=== PATIENT | female | born 1940 | race Caucasian/White ===

== ENCOUNTER → 2017-06-26 | Outpatient (CLI) | payer MEDICARE ==
--- NOTE | 2017-06-26 15:54 | US ---
EXAMINATION TYPE: US carotid duplex BILAT DATE OF EXAM: 06/26/2017 COMPARISON: NONE CLINICAL HISTORY: I65.23 Occlusion/Stenosis,I34.0 Nonrheumatic mitral. EXAM MEASUREMENTS: RIGHT: Peak Systolic Velocity (PSV) cm/sec ----- Right CCA: 66.1 ----- Right ICA: 87.1 ----- Right ECA: 61.2 ICA/CCA ratio: 1.3 RIGHT: End Diastole cm/sec ----- Right CCA: 27.3 ----- Right ICA: 38.6 ----- Right ECA: 11.6 LEFT: Peak Systolic Velocity (PSV) cm/sec ----- Left CCA: 62.5 ----- Left ICA: 87.1 ----- Left ECA: 40.0 ICA/CCA ratio: 1.4 LEFT: End Diastole cm/sec ----- Left CCA: 30.7 ----- Left ICA: 33.8 ----- Left ECA: 8.6 VERTEBRALS (direction of flow): Right Vertebral: Antegrade Left Vertebral: Antegrade Rhythm: Normal Grayscale images show mild eccentric plaque at right carotid bulb. There is more moderate eccentric p laque at left carotid bulb. Velocity measurements and ratios remain within normal limits in visualize d portion of both internal carotid arteries. IMPRESSION: There is mild to moderate left greater than right atherosclerotic change without hemodyn amically significant stenosis seen in either internal carotid artery. Criteria for Assigning % of Stenosis / Diameter reduction (Estimation based on the indirect measurements of the internal carotid artery velocities (ICA PSV). 1. Normal (no stenosis)=ICA PSV < 125 cm/s: ratio < 2.0: ICA EDV<40 cm/s. 2. Less than 50% stenosis=ICA PSV < 125 cm/s: ratio < 2.0: ICA EDV<40 cm/s. 3. 50 to 69% stenosis=ICA PSV of 125 to 230 cm/s: ration 2.0 ? 4.0: ICA EDV 40-100 cm/s. 4. Greater than 70% stenosis to near occlusion= ICA PSV > 230 cm/s: ratio > 4.0: ICA EDV > 100 cm/s. 5. Near occlusion= ICA PSV velocities may be low or undetectable: variable ratio and ICA EDV. 6. Total occlusion=unable to detect flow.
--- NOTE | 2017-06-27 08:59 | ECHOF ---
Referral Reason:I65.23 Occlusion/Stenosis,I34.0 Nonrheumatic luann MEASUREMENTS -------- HEIGHT: 132.1 cm WEIGHT: 63.0 kg BP: IVSd: 0.9 cm (0.6 - 1.1) LVIDd: 3.8 cm (3.9 - 5.3) LVPWd: 1.1 cm (0.6 - 1.1) IVSs: 1.3 cm LVIDs: 2.2 cm LVPWs: 1.0 cm Ao Diam: 2.8 cm (2.0 - 3.7) AV Cusp: 1.8 cm (1.5 - 2.6) LA Diam: 3.4 cm (2.7 - 3.8) MV EXCURSION: 14.317 mm (> 18.000) MV EF SLOPE: 76 mm/s (70 - 150) EPSS: 0.3 cm MV E Pool: 0.55 m/s MV DecT: 244 ms MV A Pool: 0.94 m/s MV E/A Ratio: 0.59 RAP: 5.00 mmHg RVSP: 31.41 mmHg FINDINGS -------- Sinus rhythm. This was a technically good study. LV size, wall thickness and systolic function are normal, with an EF greater than 55%. The right ventricle is normal in size. The left atrial size is normal. The right atrial size is normal. The aortic valve is trileaflet, and appears structurally normal. No aortic stenosis or regurgitation. Mild mitral annular calcification present. Mild mitral regurgitation is present. Mild tricuspid regurgitation present. There is no evidence of pulmonary hypertension. The right v entricular systolic pressure, as measured by Doppler, is 31.41mmHg. There is no pulmonic regurgitation present. The aortic root size is normal. There is no pericardial effusion. CONCLUSIONS -------- 1. Sinus rhythm. 2. This was a technically good study. 3. LV size, wall thickness and systolic function are normal, with an EF greater than 55%. 4. The left atrial size is normal. 5. The aortic valve is trileaflet, and appears structurally normal. No aortic stenosis or regurgitati on. 6. Mild mitral regurgitation is present. 7. Mild tricuspid regurgitation present. 8. There is no evidence of pulmonary hypertension. 9. There is no pulmonic regurgitation present. 10. The aortic root size is normal. 11. There is no pericardial effusion. BAKE ROOM WORKER: Lennie Morejon RDCS
== END | disposition home or self-care (01) ==
LOC: RADECHMAIN 14:59
PROVIDERS: ATTEND Internal Medicine
DX: I08.1 Rheumatic disorders of both mitral and tricuspid valves (principal); I65.23 Occlusion and stenosis of bilateral carotid arteries
CPT/HCPCS: 93306; 93880

== ENCOUNTER → 2017-07-16 | Outpatient (CLI) | payer MEDICARE ==
--- NOTE | 2017-07-17 09:08 | MM ---
Reason for exam: clinical finding. Last mammogram was performed 13 years and 9 months ago. History: Patient is postmenopausal. Family history of breast cancer. Indicated problem(s): palpable abnormality and lump or thickening in the left breast. Physical Findings: Nurse did not find any significant physical abnormalities on exam. MG 3D Diag Mammo W/Cad SAULO Bilateral CC and MLO view(s) were taken. Prior study comparison: October 09, 2003, bilateral screening mammogram. June 24, 2002, bilateral special view mammogram. There are scattered fibroglandular densities. Intramammary lymph node upper outer quadrant bilaterally. No significant new findings when compared with previous films. These results were verbally communicated with the patient and result sheet given to the patient on 07/16/17. ASSESSMENT: Benign, BI-RAD 2 RECOMMENDATION: Routine screening mammogram of both breasts in 1 year. Manage patient on a clinical basis.
== END | disposition home or self-care (01) ==
LOC: RADMAMWWP 09:42
PROVIDERS: ATTEND Internal Medicine
DX: R92.2 Inconclusive mammogram (principal)
CPT/HCPCS: 77066; G0279

== ENCOUNTER → 2017-07-16 | Outpatient (CLI) | payer MEDICARE ==
--- NOTE | 2017-07-16 14:38 | BD ---
EXAMINATION TYPE: MG DEXA axial skeleton. DATE OF EXAM: 07/16/2017 COMPARISON: NONE CLINICAL HISTORY: 77 YR OLD FEMALE....ICD-10 CODE: M89.9 DISORDER OF BONE Height: 58 Weight: 137 FRAX RISK QUESTIONS: Alcohol (3 or more units per day): NO Family History (Parent hip fracture): NO Glucocorticoids (More than 3mos): NO (Ex: prednisone, prednisolone, methylprednisolone, dexamethasone, and hydrocortisone). History of Fracture in Adulthood: NO Secondary Osteoporosis: NO 1. Type 1 Diabetes: NO 2. Hyperthyroidism: NO 3. Menopause before 45: NO 4. Malnutrition: NO 5. Chronic liver disease: NO Rheumatoid Arthritis: NO Current Tobacco Use: VAP, YES RISK FACTORS HISTORY OF: Family History of Osteoporosis: YES, DAUGHTER Active: YES Diet low in dairy products/other sources of calcium: YES, LOW Postmenopausal woman: AT AGE 55 YRS OLD Lost more than 2 inches in height since high school: YES Hyperparathyroidism: NO Adrenal Insufficiency: NO MEDICATIONS: Thyroid Medications: YES, SYNTHROID How Lon YRS Additional Medications: BP MEDS, LORAZEPAM, ASPIRIN, REFLUX MEDS, STATINS FOR CHOLESTEROL, Additional History: HYPERTENSION, EXAM MEASUREMENTS: Bone mineral densitometry was performed using the [employer] System. Bone mineral density as measured about the Lumbar spine is: ----- L1-L4(G/cm2): 1.401 T Score Values are as follows: ----- L1: 1.0 ----- L2: 1.1 ----- L3: 3.2 ----- L4: 1.9 ----- L1-L4: 1.8 Bone mineral density FIRST BONE DENSITY TEST HERE AT [facility] Bone mineral density about the R hip (g/cm2): 0.989 Bone mineral density about the L hip (g/cm2): 0.950 T Score values are as follows: -----R Neck: -1.6 -----L Neck: -1.7 -----R Total: -0.1 -----L Total: -0.5 FRAX%'S: THERE IS A 13.0% CHANCE OF A MAJOR OSTEOPOROTIC FX AND A 4.5% FOR HIP FX.....PROBABILITY O F FX IN 10 YRS TIME IMPRESSION: Osteopenia (T Score between -2.5 and -1 as noted by T score values There is slightly increased risk of fracture and the patient may be considered for treatment. Re-Screen 2-5 years. NOTE: T-SCORE=SD OF THE YOUNG ADULT MEAN.
== END | disposition home or self-care (01) ==
LOC: RADBDWWP 10:06
PROVIDERS: ATTEND Internal Medicine
DX: M85.80 Other specified disorders of bone density and structure, unspecified site (principal)
CPT/HCPCS: 77080

== ENCOUNTER → 2018-10-04 | Outpatient (CLI) | payer MEDICARE ==
--- NOTE | 2018-10-06 10:28 | MM ---
Reason for exam: screening (asymptomatic). Last mammogram was performed 1 year and 3 months ago. History: Patient is postmenopausal. Physical Findings: A clinical breast exam by your physician is recommended on an annual basis and results should be correlated with mammographic findings. MG 3D Screening Mammo W/Cad Bilateral CC and MLO view(s) were taken. Prior study comparison: July 16, 2017, bilateral MG 3d diag mammo w/cad SAULO. October 09, 2003, bilateral screening mammogram. There are scattered fibroglandular densities. No suspicious abnormality. No significant changes when compared with prior studies. ASSESSMENT: Negative, BI-RAD 1 RECOMMENDATION: Routine screening mammogram of both breasts in 1 year.
== END | disposition home or self-care (01) ==
LOC: RADMAMWWP 09:40
PROVIDERS: ATTEND Internal Medicine
DX: Z12.31 Encounter for screening mammogram for malignant neoplasm of breast (principal)
CPT/HCPCS: 77063; 77067

== ENCOUNTER → 2019-08-18 | Outpatient (CLI) | payer MEDICARE ==
--- NOTE | 2019-08-18 15:51 | US ---
EXAMINATION TYPE: US carotid duplex BILAT DATE OF EXAM: 08/18/2019 COMPARISON: NONE CLINICAL HISTORY: 79-year-old female I65.23 CAROTID OCCLUSION AND STENOSIS. Stenosis TECHNIQUE: Carotid duplex ultrasound examination. In the right Doppler criteria was utilized. FINDINGS: EXAM MEASUREMENTS: RIGHT: Peak Systolic Velocity (PSV) cm/sec ----- Right CCA: 69.0 ----- Right ICA: 81.5 ----- Right ECA: 67.9 ICA/CCA ratio: 1.2 RIGHT: End Diastole cm/sec ----- Right CCA: 31.1 ----- Right ICA: 29.2 ----- Right ECA: 14.3 LEFT: Peak Systolic Velocity (PSV) cm/sec ----- Left CCA: 78.8 ----- Left ICA: 84.3 ----- Left ECA: 83.6 ICA/CCA ratio: 1.1 LEFT: End Diastole cm/sec ----- Left CCA: 29.9 ----- Left ICA: 31.9 ----- Left ECA: 20.4 VERTEBRALS (direction of flow): Right Vertebral: Antegrade Left Vertebral: Antegrade Rhythm: Normal Psychology Technician notes: The vessels dive deep. No significant stenosis seen IMPRESSION: No hemodynamically significant ICA stenosis on either side. Criteria for Assigning % of Stenosis / Diameter reduction (Estimation based on the indirect measurements of the internal carotid artery velocities (ICA PSV). 1. Normal (no stenosis)=ICA PSV < 125 cm/s: ratio < 2.0: ICA EDV<40 cm/s. 2. Less than 50% stenosis=ICA PSV < 125 cm/s: ratio < 2.0: ICA EDV<40 cm/s. 3. 50 to 69% stenosis=ICA PSV of 125 to 230 cm/s: ration 2.0 ? 4.0: ICA EDV 40-100 cm/s. 4. Greater than 70% stenosis to near occlusion= ICA PSV > 230 cm/s: ratio > 4.0: ICA EDV > 100 cm/s. 5. Near occlusion= ICA PSV velocities may be low or undetectable: variable ratio and ICA EDV. 6. Total occlusion=unable to detect flow.
--- NOTE | 2019-08-18 20:14 | ECHOF ---
Referral Reason:I34.0 Nonrheumatic mitral (valve) insufficiency MEASUREMENTS -------- HEIGHT: 147.3 cm WEIGHT: 61.2 kg BP: IVSd: 1.2 cm (0.6 - 1.1) LVIDd: 3.3 cm (3.9 - 5.3) LVPWd: 1.0 cm (0.6 - 1.1) IVSs: 1.2 cm LVIDs: 2.3 cm LVPWs: 1.5 cm RVIDd: 3.0 cm (< 3.3) LAESV Index (A-L): 17.99 ml/m Ao Diam: 2.0 cm (2.0 - 3.7) AV Cusp: 1.6 cm (1.5 - 2.6) EPSS: 0.4 cm MV E Pool: 0.92 m/s MV DecT: 236 ms MV A Pool: 1.18 m/s MV E/A Ratio: 0.78 RAP: 5.00 mmHg RVSP: 35.15 mmHg MV EF SLOPE: 29.09 mm/s (70 - 150) MV EXCURSION: 11.54 mm (> 18.000) FINDINGS -------- Sinus rhythm. This was a technically adequate study. The left ventricular size is normal. There is mild concentric left ventricular hypertrophy. Overa ll left ventricular systolic function is normal with, an EF between 55 - 60 %. The diastolic fillin g pattern is normal for the age of the patient 13.49. The right ventricle is normal in size. Normal LA size by volume 22+/-6 ml/m2. The right atrial size is normal. Interatrial and interventricular septum intact. There is no evidence of aortic regurgitation. There is no evidence of aortic stenosis. Mild mitral regurgitation is present. Mild tricuspid regurgitation present. There is mild pulmonary hypertension. The right ventricular systolic pressure, as measured by Doppler, is 35.15mmHg. There is no pulmonic regurgitation present. The aortic root size is normal. Normal inferior vena cava with normal inspiratory collapse consistent with estimated right atrial pre ssure of 5 mmHg. There is no pericardial effusion. CONCLUSIONS -------- 1. Sinus rhythm. 2. This was a technically adequate study. 3. The left ventricular size is normal. 4. There is mild concentric left ventricular hypertrophy. 5. Overall left ventricular systolic function is normal with, an EF between 55 - 60 %. 6. The diastolic filling pattern is normal for the age of the patient 13.49 7. The right ventricle is normal in size. 8. Normal LA size by volume 22+/-6 ml/m2. 9. The right atrial size is normal. 10. Interatrial and interventricular septum intact. 11. There is no evidence of aortic regurgitation. 12. There is no evidence of aortic stenosis. 13. Mild mitral regurgitation is present. 14. Mild tricuspid regurgitation present. 15. There is mild pulmonary hypertension. 16. The right ventricular systolic pressure, as measured by Doppler, is 35.15mmHg. 17. There is no pulmonic regurgitation present. 18. The aortic root size is normal. 19. Normal inferior vena cava with normal inspiratory collapse consistent with estimated right atrial pressure of 5 mmHg. 20. There is no pericardial effusion. GAS ROLLER OPERATOR: Amisha Wallace RDCS
== END | disposition home or self-care (01) ==
LOC: RADECHMAIN 12:16
PROVIDERS: ATTEND Internal Medicine
DX: I65.23 Occlusion and stenosis of bilateral carotid arteries (principal); I08.1 Rheumatic disorders of both mitral and tricuspid valves; I27.20 Pulmonary hypertension, unspecified
CPT/HCPCS: 93306; 93880

== ENCOUNTER → 2020-12-24 | Outpatient (CLI) | payer MEDICARE ==
--- NOTE | 2020-12-25 10:45 | ECHOF ---
Referral Reason:R01.1 Cardiac Murmur MEASUREMENTS -------- HEIGHT: 149.9 cm WEIGHT: 58.1 kg BP: 145/82 RVIDd: 2.8 cm (< 3.3) IVSd: 1.1 cm (0.6 - 1.1) LVIDd: 3.7 cm (3.9 - 5.3) LVPWd: 1.0 cm (0.6 - 1.1) IVSs: 1.5 cm LVIDs: 2.4 cm LVPWs: 1.2 cm LA Diam: 2.7 cm (2.7 - 3.8) LAESV Index (A-L): 21.42 ml/m Ao Diam: 2.9 cm (2.0 - 3.7) AV Cusp: 1.8 cm (1.5 - 2.6) MV EXCURSION: 13.970 mm (> 18.000) MV EF SLOPE: 49 mm/s (70 - 150) EPSS: 0.4 cm MV E Pool: 1.06 m/s MV DecT: 259 ms MV A Pool: 1.26 m/s MV E/A Ratio: 0.84 RAP: 5.00 mmHg RVSP: 36.87 mmHg FINDINGS -------- Sinus rhythm. This was a technically adequate study. The left ventricular size is normal. There is borderline concentric left ventricular hypertrophy. Overall left ventricular systolic function is normal with, an EF between 60 - 65 %. The right ventricle is normal in size. Normal LA size by volume 22+/-6 ml/m2. The right atrium is normal in size. Interatrial and interventricular septum intact. There is mild aortic valve sclerosis. The mitral valve leaflets are mildly thickened. Mild mitral annular calcification present. There is trace to mild mitral regurgitation. Mild tricuspid regurgitation present. There is mild pulmonary hypertension. The right ventricular systolic pressure, as measured by Doppler, is 36.87mmHg. Trace/mild (physiologic) pulmonic regurgitation. The aortic root size is normal. Normal inferior vena cava with normal inspiratory collapse consistent with estimated right atrial pre ssure of 5 mmHg. There is no pericardial effusion. CONCLUSIONS -------- 1. The left ventricular size is normal. 2. There is borderline concentric left ventricular hypertrophy. 3. Overall left ventricular systolic function is normal with, an EF between 60 - 65 %. 4. There is mild aortic valve sclerosis. 5. The mitral valve leaflets are mildly thickened. 6. Mild mitral annular calcification present. 7. There is trace to mild mitral regurgitation. 8. Mild tricuspid regurgitation present. 9. There is mild pulmonary hypertension. 10. The right ventricular systolic pressure, as measured by Doppler, is 36.87mmHg. 11. Trace/mild (physiologic) pulmonic regurgitation. 12. There is no pericardial effusion. RAIL TRACK LAYER: Monica Villegas RDCS
== END | disposition home or self-care (01) ==
LOC: RADECHMAIN 13:34
PROVIDERS: ATTEND Family Medicine
DX: I08.8 Other rheumatic multiple valve diseases (principal); I27.20 Pulmonary hypertension, unspecified
CPT/HCPCS: 93005; 93306

== ENCOUNTER → 2020-12-26 | Outpatient (CLI) | payer MEDICARE ==
--- NOTE | 2020-12-27 10:58 | BD ---
EXAMINATION TYPE: Axial Bone Density DATE OF EXAM: 12/26/2020 COMPARISON: NONE CLINICAL HISTORY: Postmenopausal Height: 58 Weight: 131.6 FRAX RISK QUESTIONS: Alcohol (3 or more units per day): no Family History (Parent hip fracture): no Glucocorticoids (More than 3mos): no (Ex: prednisone, prednisolone, methylprednisolone, dexamethasone, and hydrocortisone). History of Fracture in Adulthood: no Secondary Osteoporosis: 1. Type 1 Diabetes: no 2. Hyperthyroidism: no 3. Menopause before 45: no 4. Malnutrition: no 5. Chronic liver disease: no Rheumatoid Arthritis: no Current Tobacco Use: yes RISK FACTORS HISTORY OF: Surgery to Spine/Hip(right/left)/Wrist (right/left): no Family History of Osteoporosis: no Active: yes Diet low in dairy products/other sources of calcium: no Postmenopausal woman: age 49 Lost more than 2 inches in height since high school: no MEDICATIONS: diltiazem, crestor Thyroid Medications: thyroid/levothyroxine How Lon years Additional History: EXAM MEASUREMENTS: Bone mineral densitometry was performed using the [employer] System. Bone mineral density as measured about the Lumbar spine is: ----- L1-L4(G/cm2): 1.453 T Score Values are as follows: ----- L2: 1.9 ----- L3: 3.4 ----- L4: 2.9 ----- L1-L4: 2.3 Bone mineral density has: increased 6.1 % since study of: 07.16.2017 Bone mineral density about the R hip (g/cm2): 0.793 Bone mineral density about the L hip (g/cm2): 0.738 T Score values are as follows: -----R Neck: -1.8 -----L Neck: -2.2 -----R Total: -0.8 -----L Total: -1.0 Bone mineral density has: decreased -7.6 % since study of: 07.16.2017 IMPRESSION: Osteopenia (T Score between -2.5 and -1). There is slightly increased risk of fracture and the patient may be considered for treatment. Re-Screen 2-5 years. NOTE: T-SCORE=SD OF THE YOUNG ADULT MEAN.
== END | disposition home or self-care (01) ==
LOC: RADBDWWP 16:12
PROVIDERS: ATTEND Family Medicine
DX: Z13.820 Encounter for screening for osteoporosis (principal); M85.89 Other specified disorders of bone density and structure, multiple sites; Z78.0 Asymptomatic menopausal state
CPT/HCPCS: 77080

== ENCOUNTER → 2022-01-13 | Outpatient (CLI) | payer MEDICARE ==
--- NOTE | 2022-01-13 13:44 | XR ---
EXAMINATION TYPE: XR KUB DATE OF EXAM: 01/13/2022 COMPARISON: NONE HISTORY: Pain TECHNIQUE: Single supine KUB image of the abdomen is obtained FINDINGS: Small bowel demonstrates no evidence for dilatation or air fluid levels. Gas and fecal material is seen in non-distended colon. No convincing evidence for pneumoperitoneum. No unusual calcifications. The lung bases are clear. The osseous structures are intact. Mild fecal stasis noted. IMPRESSION: 1. Overall nonobstructive bowel gas pattern.
== END | disposition home or self-care (01) ==
LOC: RADXRMAIN 13:24
PROVIDERS: ATTEND Nurse Practitioner Family
DX: R31.9 Hematuria, unspecified (principal); R10.9 Unspecified abdominal pain
CPT/HCPCS: 74018

== ENCOUNTER → 2022-05-05 | Outpatient (CLI) | payer MEDICARE ==
[2022-05-05 23:47] LABS: Basophils # (A) 0.04 X 10*3/uL (0.00-0.10); Basophils % (A) 0.6 %; Eosinophils # (A) 0.17 X 10*3/uL (0.04-0.35); Eosinophils % (A) 2.5 %; HCT 44.2 % (37.2-46.3); HGB 14.2 g/dL (12.0-15.0); Immature Grans, Automated 0.3 %; Lymphocytes # (A) 1.67 X 10*3/uL (0.90-5.00); Lymphocytes % (A) 24.5 %; MCH 29.3 pg (27.0-32.0); MCHC 32.1 g/dL (32.0-37.0); MCV 91.1 fL (80.0-97.0); Mean Platelet Volume 11.5 fL (9.5-12.2); Monocytes # (A) 0.79 X 10*3/uL (0.20-1.00); Monocytes % (A) 11.6 %; NRBC Per 100 WBC 0 /100 WBCS (0.0-0.0); Neutrophils # (A) 4.12 X 10*3/uL (1.80-7.70); Neutrophils % (A) 60.5 %; Platelet Count 261 X 10*3/uL (140-440); RBC 4.85 X 10*6/uL (4.10-5.20); RDW 15.7 % (11.5-14.5); WBC 6.81 X 10*3/uL (4.50-10.00)
[2022-05-06 00:02] LABS: African American GFR (CKD) 54.9 (60.0-200.0); Anion Gap 9.7 mmol/L (10.00-18.00); BUN/Creat Ratio 9.45 Ratio (12.00-20.00); Blood Urea Nitrogen 10.4 mg/dL (9.0-27.0); Carbon Dioxide 27.3 mmol/L (20.0-27.5); Non-African American GFR(CKD) 47.4 (60.0-200.0); Potassium 4.9 mmol/L (3.5-5.5)
== END | disposition home or self-care (01) ==
LOC: LABWHC1 15:15
PROVIDERS: ATTEND Urology
DX: Z01.812 Encounter for preprocedural laboratory examination (principal); C66.2 Malignant neoplasm of left ureter
CPT/HCPCS: 36415; 80048; 85025; 86850; 86900; 86901

== ENCOUNTER → 2022-05-13 | Outpatient (CLI) | payer MEDICARE | END | disposition home or self-care (01) | LOC: LABPAT 10:14 | PROVIDERS: ATTEND Urology | DX: Z01.812 Encounter for preprocedural laboratory examination (principal); C66.2 Malignant neoplasm of left ureter | CPT/HCPCS: 93005 ==

== ENCOUNTER 2022-05-14 08:53 | Inpatient (IN) | payer MEDICARE ==
--- NOTE | 2022-05-13 18:38 | P.GSHP ---
History of Present Illness H&P Date: 05/13/22 Chief Complaint: Gross hematuria The patient is an 82-year-old white female who presented with a four-month history of intermittent gross hematuria associated with left flank pain. Computed tomography scan showed a questionable soft tissue filling defect within the left distal ureter at the ureterovesical junction. She underwent cystoscopy with left ureteroscopy. No bladder tumors were seen, but she was confirmed to have a large tumor within the left distal ureter. Biopsies showed high-grade, noninvasive urothelial carcinoma. She was offered the options of a left nephroureterectomy versus a left distal ureterectomy with reimplant and has elected to undergo the latter. - Constitutional Constitutional: Reports weakness, Denies chills, Denies fever - Cardiovascular Cardiovascular: Reports high blood pressure - Respiratory Respiratory: Reports dyspnea - Gastrointestinal Gastrointestinal: Reports heartburn - Genitourinary (Female) Genitourinary: Reports flank pain, Reports hematuria Past Medical History Past Medical History: Hyperlipidemia, Hypertension, Thyroid Disorder Additional Past Medical History / Comment(s): cancer in the left ureter. removed cancer and reattach . 2 months of UTI and not being cleared. saw Dr Knight and DX, Hx of bronchitis started using inhaler. uses for wheezing and SOB. some panic issues. occasional heartburn, arthritis in hands, arms and legs. some numbness in hands at times. leg cramps. cataracts removed bilaterally. seasonal allergies. History of Any Multi-Drug Resistant Organisms: None Reported Past Surgical History: Section, Hernia Repair Additional Past Surgical History / Comment(s): left great toe amputation. Hiatal hernia repair. rt parathryoid removed Past Anesthesia/Blood Transfusion Reactions: No Reported Reaction Additional Past Anesthesia/Blood Transfusion Reaction / Comment(s): blood transfusion as a baby. - no issues Smoking Status: Current every day smoker - Past Family History Mother History Unknown: Yes Additional Family Medical History / Comment(s): adopted Medications and Allergies Home Medications Medication Instructions Recorded Confirmed Type ALPRAZolam [Xanax] 0.25 mg PO TID PRN 05/12/22 05/12/22 History Acetaminophen Tab [Tylenol Tab] 500 mg PO DIRECTED PRN 05/12/22 05/12/22 History Donepezil [Aricept] 10 mg PO HS 05/12/22 05/12/22 History Ipratropium-Albuterol Nebulize 3 ml INHALATION TID PRN 05/12/22 05/12/22 History [Duoneb 0.5 mg-3 mg/3 ml Soln] Levothyroxine Sodium [Synthroid] 50 mcg PO DAILY 05/12/22 05/12/22 History Rosuvastatin Calcium 20 mg PO HS 05/12/22 05/12/22 History Unk Vitamin B12 1 tab PO DAILY 05/12/22 05/12/22 History dilTIAZem HCL [Cardizem CD] 240 mg PO HS 05/12/22 05/12/22 History Allergies Allergy/AdvReac Type Severity Reaction Status Date / Time adhesive tape Allergy Rash/Hives Verified 05/12/22 15:16 contact metal agent Allergy Rash/Hives Verified 05/12/22 14:10 latex Allergy Rash/Hives Verified 05/12/22 15:17 meperidine [From Demerol] Allergy Nausea & Verified 05/12/22 15:17 Vomiting Surgical - Exam - General well developed, well nourished, no distress - Neck no masses, trachea midline - Respiratory normal respiratory effort - Abdomen Abdomen: soft, non tender, no guarding, no rigid, no rebound - Psychiatric oriented to time, oriented to person, oriented to place, speech is normal, memory intact Results - Imaging CT scan - abdomen: report reviewed, image reviewed Assessment and Plan (1) Malignant neoplasm of left ureter Status: Acute Code(s): C66.2 - MALIGNANT NEOPLASM OF LEFT URETER SNOMED Code(s): 681682017 Plan: Left distal ureterectomy with ureteral reimplant, pelvic lymphadenectomy. The procedure has been reviewed in detail with the patient and her daughter. They have been made aware of potential risks, which include anesthesia, bleeding, infection, lymphocele, urinary leak, ureteral stricture, recurrent malignancy.
[~2022-05-14 08:53] MED LIST: DEXAMETHASONE SOD PHOSPHATE 4 MG/ML 1 ML VIAL IV ONE; HEPARIN SODIUM,PORCINE/PF 5,000 UNIT/0.5 ML SYRINGE SQ PRN; HYDROmorphone 0.5 MG/0.5 ML SYRINGE IVP PRN; LIDOCAINE 1% (10MG/ML) FOR IV START INTRADERMA PRN; MIDAZOLAM 2 MG/2 ML VIAL IV PRN; ONDANSETRON 4 MG/2 ML VIAL IVP ONE
[2022-05-14] MEDS ORDERED: LACTATED RINGERS 1,000 ML IV ONE ×2 (09:13→12:15)
[2022-05-14] MEDS ORDERED: SUCCINYLCHOLINE CHLORIDE 200 MG/10 ML VIAL IV ONE (10:09)
[2022-05-14] MEDS ORDERED: HYDROmorphone (PF) 1 MG/ML ONE (10:09)
[2022-05-14] MEDS ORDERED: PROPOFOL 10 MG/ML 20 ML VIAL IV ONE (10:09)
[2022-05-14] MEDS ORDERED: ROCURONIUM 10 MG/ML (5 ML VIAL) IV ONE (10:09)
[2022-05-14] MEDS ORDERED: LIDOCAINE 2% INJ 20 MG/ML (2 ML VIAL) ONE (10:09)
[2022-05-14] MEDS ORDERED: fentaNYL (PF) 50 MCG/ML 2 ML AMP ONE (10:09)
[2022-05-14] MEDS ORDERED: ePHEDrine 50 MG/ML 1 ML VIAL ONE (10:09)
[2022-05-14] MEDS ORDERED: HYDROmorphone 0.5 MG/0.5 ML SYRINGE IVP PRN (14:13)
[2022-05-14] MEDS ORDERED: KETOROLAC 15 MG/ML 1 ML VIAL IVP PRN (14:16)
[2022-05-14] MEDS ORDERED: KETOROLAC 15 MG/ML 1 ML VIAL IVP ONE (15:17)
[2022-05-14] MEDS: LACTATED RINGERS 1,000 ML IV SCH (15:17)
[2022-05-14] MEDS ORDERED: ARTIFICIAL TEARS-HYPROMELLOSE DROPS 15 ML BTL BOTH EYES PRN (17:07)
[2022-05-14] MEDS: DEXTROSE 5%-0.45% NACL 1,000 ML IV SCH (18:44)
[2022-05-14] MEDS: DILTIAZEM CD 240 MG CAP.ER.24H PO SCH (20:54)
[2022-05-14] MEDS: HEPARIN SODIUM,PORCINE/PF 5,000 UNIT/0.5 ML SYRINGE SQ SCH (20:55)
[2022-05-14] MEDS: DONEPEZIL 10 MG TAB PO SCH (20:55)
[2022-05-14] MEDS: ATORVASTATIN 40 MG TAB PO SCH (20:55)
[2022-05-14] MEDS ORDERED: DONEPEZIL 10 MG TAB PO SCH (21:00)
[2022-05-14] MEDS ORDERED: DILTIAZEM CD 240 MG CAP.ER.24H PO SCH (21:00)
[2022-05-15] MEDS: DEXTROSE 5%-0.45% NACL 1,000 ML IV SCH ×2 (03:53→13:45)
[2022-05-15] MEDS: LEVOTHYROXINE 50 MCG TAB PO SCH (07:03)
[2022-05-15] MEDS: IPRATROPIUM-ALBUTEROL 3 ML NEB INHALATION PRN ×2 (07:58→19:00)
--- NOTE | 2022-05-15 08:59 | P.PN ---
Subjective Progress Note Date: 05/15/22 Principal diagnosis: Left ureteral carcinoma The patient is an 82-year-old white female who presented with a four-month history of intermittent gross hematuria associated with left flank pain. Computed tomography scan showed a questionable soft tissue filling defect within the left distal ureter at the ureterovesical junction. She underwent cystoscopy with left ureteroscopy. No bladder tumors were seen, but she was confirmed to have a large tumor within the left distal ureter. Biopsies showed high-grade, noninvasive urothelial carcinoma. On 05/14/22 the patient underwent a left distal ureterectomy with ureteral reimplant and left pelvic lymph node dissection with Dr. Knight. Objective - Vital Signs Vital signs: Vital Signs Temp 98.6 F 05/15/22 02:00 Pulse 72 05/15/22 08:12 Resp 16 05/15/22 02:00 BP 104/67 05/15/22 02:00 Pulse Ox 96 05/15/22 08:02 FiO2 Intake & Output 05/14/22 05/15/22 05/15/22 18:59 06:59 18:59 Intake Total 2250 Output Total 300 890 Balance 1950 -890 Weight 54.3 kg Intake: IV 2250 Output: Drainage 90 Abdomen 90 Urine 200 800 Estimated Blood Loss 100 Other: Voiding Method Indwelling Catheter - Exam General: Well developed, well nourished. No acute distress. HEENT: Head is atraumatic, normocephalic. Lungs: Respirations even and nonlabored. On 2L NC Abdomen/GI: Soft. + abdominal tenderness, midline incision dressing CDI, small amount of shadowing present around TIFFANIE drain : Neal catheter present with hematuria present Skin: Warm and dry Neurologic: Awake, alert and oriented times 3. CN II-XII grossly intact. Psychiatric: Appropriate mood and affect. Assessment and Plan Assessment: The patient is resting in bed. She states her pain is well managed. She is experiencing some bladder pressure. No nausea or vomiting. Hematuria noted in neal bag, this is an expected finding. Left abdominal TIFFANIE drain with serosanguineous drainage. She is afebrile and vitals are stable. (1) Malignant neoplasm of left ureter Current Visit: No Status: Acute Code(s): C66.2 - MALIGNANT NEOPLASM OF LEFT URETER SNOMED Code(s): 526292945 Plan: - IS 10 x an hour while awake - Increase activity - Advance diet as tolerated - Continue current pain regimen - Monitor TIFFANIE drainage - Leave Neal catheter in place for a couple weeks to allow bladder to heal - Stent removal in approximately one month in office - Pathology report pending Impression and plan of care have been directed as dictated by the signing physician. Stacy Morrow nurse practitioner acting as scribe for signing physician. Stacy Morrow [facility] Palliative Care/Urology [facility], [place] [address] Email: [email or web address] The patient was been examined by me and I concur with the above note, Raffi Silva
[2022-05-15] MEDS: LACTATED RINGERS 1,000 ML IV SCH (09:21)
[2022-05-15] MEDS: HEPARIN SODIUM,PORCINE/PF 5,000 UNIT/0.5 ML SYRINGE SQ SCH ×2 (10:01→20:21)
[2022-05-15] MEDS: CYANOCOBALAMIN 500 MCG TAB PO SCH (10:02)
[2022-05-15] MEDS: ACETAMINOPHEN TAB 325 MG TAB PO PRN (10:02)
[2022-05-15] MEDS: ALPRAZolam 0.25 MG TAB PO PRN (11:16)
[2022-05-15] MEDS: DILTIAZEM CD 240 MG CAP.ER.24H PO SCH (20:21)
[2022-05-15] MEDS: DOCUSATE 100 MG CAP PO SCH (20:21)
[2022-05-15] MEDS: ATORVASTATIN 40 MG TAB PO SCH (20:21)
[2022-05-15] MEDS: DONEPEZIL 10 MG TAB PO SCH (20:21)
[2022-05-16] MEDS: IPRATROPIUM-ALBUTEROL 3 ML NEB INHALATION PRN ×3 (00:22→15:26)
[2022-05-16] MEDS: DEXTROSE 5%-0.45% NACL 1,000 ML IV SCH ×2 (02:00→11:34)
[2022-05-16] MEDS: LEVOTHYROXINE 50 MCG TAB PO SCH (06:40)
[2022-05-16] MEDS: LACTATED RINGERS 1,000 ML IV SCH (07:49)
[2022-05-16] MEDS: CYANOCOBALAMIN 500 MCG TAB PO SCH (08:17)
[2022-05-16] MEDS: DOCUSATE 100 MG CAP PO SCH ×2 (08:17→20:58)
[2022-05-16] MEDS: HEPARIN SODIUM,PORCINE/PF 5,000 UNIT/0.5 ML SYRINGE SQ SCH ×2 (08:17→20:57)
--- NOTE | 2022-05-16 08:27 | P.PN ---
Subjective Progress Note Date: 05/16/22 Principal diagnosis: Left ureteral carcinoma The patient is an 82-year-old white female who presented with a four-month history of intermittent gross hematuria associated with left flank pain. Computed tomography scan showed a questionable soft tissue filling defect within the left distal ureter at the ureterovesical junction. She underwent cystoscopy with left ureteroscopy. No bladder tumors were seen, but she was confirmed to have a large tumor within the left distal ureter. Biopsies showed high-grade, noninvasive urothelial carcinoma. On 05/14/22 the patient underwent a left distal ureterectomy with ureteral reimplant and left pelvic lymph node dissection with Dr. Knight. Objective - Vital Signs Vital signs: Vital Signs Temp 98.1 F 05/16/22 02:27 Pulse 71 05/16/22 02:27 Resp 17 05/16/22 02:27 BP 96/60 05/16/22 02:27 Pulse Ox 90 L 05/16/22 02:27 FiO2 Intake & Output 05/15/22 05/16/22 05/16/22 18:59 06:59 18:59 Output Total 685 750 20 Balance -685 -750 -20 Output: Drainage 35 20 Abdomen 35 20 Urine 650 750 Other: Voiding Method Indwelling Catheter Indwelling Catheter - Exam General: Well developed, well nourished. No acute distress. HEENT: Head is atraumatic, normocephalic. Lungs: Respirations even and nonlabored. On RA Abdomen/GI: Soft. + abdominal tenderness, midline incision dressing CDI, small amount of shadowing present around TIFFANIE drain : Cabello catheter present with dark red urine Skin: Warm and dry Neurologic: Awake, alert and oriented times 3. CN II-XII grossly intact. Psychiatric: Appropriate mood and affect. Assessment and Plan Assessment: The patient is resting in bed eating breakfast. She states her pain better today. She has been able to ambulate in her room. No nausea or vomiting. Cabello catheter draining dark red urine, this is an expected finding. Left abdominal TIFFANIE drain with serosanguineous drainage. She is afebrile and vitals are stable. (1) Malignant neoplasm of left ureter Current Visit: No Status: Acute Code(s): C66.2 - MALIGNANT NEOPLASM OF LEFT URETER SNOMED Code(s): 608370230 Plan: - IS 10 x an hour while awake - Increase activity - Decrease IVF to 50cc/hr - Continue current pain regimen - Monitor TIFFANEI drainage - Leave Cabello catheter in place for a couple weeks to allow bladder to heal - Stent removal in approximately one month in office - Pathology report pending - Anticipate discharge in the next 24-48 hours Impression and plan of care have been directed as dictated by the signing physician. Stacy Morrow nurse practitioner acting as scribe for signing physician. Stacy Morrow [facility]- Palliative Care/Urology [facility] [id number] Email: [email or web address] The patient was evaluated by me and I concur with the above-mentioned note., Raffi Li M.D.
[2022-05-16] MEDS: ALPRAZolam 0.25 MG TAB PO PRN (15:09)
[2022-05-16] MEDS ORDERED: IPRATROPIUM-ALBUTEROL 3 ML NEB INHALATION PRN (18:26)
[2022-05-16] MEDS: IPRATROPIUM-ALBUTEROL 3 ML NEB INHALATION SCH (19:22)
[2022-05-16] MEDS: ACETAMINOPHEN TAB 325 MG TAB PO PRN (20:58)
[2022-05-16] MEDS: DILTIAZEM CD 240 MG CAP.ER.24H PO SCH (20:58)
[2022-05-16] MEDS: ATORVASTATIN 40 MG TAB PO SCH (20:58)
[2022-05-16] MEDS: DONEPEZIL 10 MG TAB PO SCH (20:58)
[2022-05-17] MEDS: DEXTROSE 5%-0.45% NACL 1,000 ML IV SCH (04:42)
[2022-05-17] MEDS: LEVOTHYROXINE 50 MCG TAB PO SCH (06:40)
[2022-05-17] MEDS: IPRATROPIUM-ALBUTEROL 3 ML NEB INHALATION SCH ×2 (07:46→11:39)
[2022-05-17] MEDS: CYANOCOBALAMIN 500 MCG TAB PO SCH (08:36)
[2022-05-17] MEDS: DOCUSATE 100 MG CAP PO SCH (08:36)
[2022-05-17] MEDS: HEPARIN SODIUM,PORCINE/PF 5,000 UNIT/0.5 ML SYRINGE SQ SCH (08:36)
[2022-05-17 08:38] VITALS: BP 107/53; RESP 16; TEMP 98
--- NOTE | 2022-05-17 10:52 | P.DS ---
Providers Date of admission: 05/14/22 08:53 Attending physician: Hermes Knight Primary care physician: Gallito Oneill - Discharge Diagnosis(es) (1) Malignant neoplasm of left ureter Current Visit: No Status: Acute Hospital Course: Patient is admitted to the hospital for a distal left ureterectomy with reimplantation. She underwent this without difficulty. Postoperatively she did well. Diet was slowly advanced. She had related. Her urine is remained a little bit bloody. The TIFFANIE drainage has been moderate as expected. Her wound is healing nicely. Her vital signs are stable. She is ambulating tolerating regular diet passing gas and pain under control. She'll be discharged home later today with a TIFFANIE drain and the Cabello catheter. She'll follow-up with Lee for staple removal and drain assessment. Pathology shows a low-grade tumor, noninvasive with negative margins. Lymph nodes are negative. Patient Condition at Discharge: Good Plan - Discharge Summary Discharge Rx Participant: No New Discharge Prescriptions: New HYDROcodone/APAP 5-325MG [Kechi 5-325] 1 tab PO Q4HR PRN #14 tab PRN Reason: Pain No Action Acetaminophen Tab [Tylenol Tab] 500 mg PO DIRECTED PRN PRN Reason: Pain Donepezil [Aricept] 10 mg PO HS Unk Vitamin B12 1 tab PO DAILY dilTIAZem HCL [Cardizem CD] 240 mg PO HS Levothyroxine Sodium [Synthroid] 50 mcg PO DAILY Rosuvastatin Calcium 20 mg PO HS ALPRAZolam [Xanax] 0.25 mg PO TID PRN PRN Reason: Anxiety Ipratropium-Albuterol Nebulize [Duoneb 0.5 mg-3 mg/3 ml Soln] 3 ml INHALATION TID PRN PRN Reason: Wheezing Discharge Medication List ALPRAZolam [Xanax] 0.25 mg PO TID PRN 05/12/22 [History] Acetaminophen Tab [Tylenol Tab] 500 mg PO DIRECTED PRN 05/12/22 [History] Donepezil [Aricept] 10 mg PO HS 05/12/22 [History] Ipratropium-Albuterol Nebulize [Duoneb 0.5 mg-3 mg/3 ml Soln] 3 ml INHALATION TID PRN 05/12/22 [History] Levothyroxine Sodium [Synthroid] 50 mcg PO DAILY 05/12/22 [History] Rosuvastatin Calcium 20 mg PO HS 05/12/22 [History] Unk Vitamin B12 1 tab PO DAILY 05/12/22 [History] dilTIAZem HCL [Cardizem CD] 240 mg PO HS 05/12/22 [History] HYDROcodone/APAP 5-325MG [Kechi 5-325] 1 tab PO Q4HR PRN #14 tab 05/17/22 [Rx] Follow up Appointment(s)/Referral(s): Hermes Knight MD [STAFF PHYSICIAN] - 05/20/22 (Home with Cabello and TIFFANIE michael please instruct) Jo Garza [NON-STAFF] - As Needed Discharge Disposition: HOME SELF-CARE
[2022-05-17 11:51] VITALS: PULSE 88
[2022-05-17] MEDS: ACETAMINOPHEN TAB 325 MG TAB PO PRN (12:56)
[2022-05-17] MEDS: ALPRAZolam 0.25 MG TAB PO PRN (12:56)
[2022-05-17] MEDS: LACTATED RINGERS 1,000 ML IV SCH (13:02)
--- NOTE | 2022-05-18 19:59 | P.OP ---
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 Computed tomography scan showed a questionable soft tissue filling defect within the left distal ureter at the ureterovesical junction. She underwent cystoscopy with left ureteroscopy. No bladder tumors were seen, but she was confirmed to have a large tumor within the left distal ureter. Biopsies showed high-grade, noninvasive urothelial carcinoma. She was offered the options of a left nephroureterectomy versus a left distal ureterectomy with reimplant and has elected to undergo the latter. Operative Findings: Left distal ureteral tumor. Negative ureteral margins. No evidence of adenopathy. Description of Procedure: The patient was taken to the operating room and placed in the supine position. A Cabello catheter was placed sterilely, and positioned such that the nursing staff would have access to the catheter. Warm sterile water was instilled into the bladder, and the catheter was clamped. The abdomen was prepped and draped sterilely. The scalpel was used to make a midline infraumbilical skin incision. The Bovie electrocautery was used to incise the subcutaneous fat and linea alba in the midline. Blunt dissection was utilized to develop the space of Retzius. The Bookwalter retractor was used for exposure. The left ureter was palpated as it coursed over the iliac vessels. It was dissected distally. Lateral bladder attachments were clipped and divided, allowing the ureter to be dissected down to the ureterovesical junction. The distal ureter was thickened, but otherwise unremarkable. A left pelvic lymph node dissection was performed in the standard fashion, using a combination of sharp and blunt dissection. Margins of dissection were the external iliac artery laterally, the obturator nerve medially, the circumflex iliac vein distally, and the bifurcation of the iliac vessels proximally. Lymphatics were clipped prior to dividing them. There was no evidence of adenopathy. There were no complications. The Bovie electrocautery was used to make an anterior midline cystotomy incision. Next, the Bovie electrocautery was used to incise the bladder mucosa circumferentially around the ureteral orifice. The intramural portion of the ureter was then dissected away from the bladder. Once the ureter was detached from the bladder, the ureter was transected proximal to the palpable tumor within the ureter. The resected ureter was sent for frozen section, and the proximal margin was negative. The bladder defect was closed in 2 layers. 2-0 Vicryl suture was used in a running fashion to close the muscle, and the mucosa was closed using 3-0 Vicryl suture in a running fashion. An additional muscular layer closure was performed from outside the bladder using 2-0 Vicryl suture. The right side of the bladder was then mobilized to allow a left psoas hitch to be performed. 3 2-0 Vicryl sutures were passed through the psoas muscle and the date custom framing specialist muscle of the left bladder dome, thus securing the left bladder dome to the psoas muscle. A small opening was then made in a corresponding location of the bladder, allowing the ureter to be passed into the bladder. The mucosa was incised distally from the bladder opening, thus providing a trough for the ureter. The ureter was longer than needed, and therefore an additional centimeter of the ureter was removed. The remaining ureter was then spatulated anteriorly and secured to the bladder using 5-0 Vicryl sutures in simple interrupted fashion. Once the ureter was secured to the bladder, a 22 cm, 6-Lebanese double-J ureteral stent was placed. The anterior cystotomy incision was closed in 2 layers. The mucosa was closed using 3-0 Vicryl suture in a running fashion. The muscle was closed using 2-0 Vicryl suture in a running fashion. The bladder was then filled with sterile water. Some extravasation was noted at the point where the ureter entered the bladder, and Vicryl suture was then used to constrict the size of the opening such that there was no longer any extravasation. A Zach-Maldonado drain was placed within the left hemipelvis, and brought out through a separate stab incision to the left of the midline surgical incision. The drain was sutured to the skin using silk suture, and was later attached to bulb suction. Hemostasis was noted to be excellent. The linea alba was closed using #1 Vicryl suture in a running fashion. The skin was closed using wei. A sterile gauze dressing was applied over the incision. The Cabello catheter was connected to gravity drainage. All sponge and needle counts were correct. The patient tolerated the procedure well was taken to the recovery room in stable condition.
== END 2022-05-17 11:39 | disposition home health service (06) | DRG 658 ==
LOC: 2ORMAIN 08:53 → 4SSUR 14:54
PROVIDERS: ADMIT Urology; ATTEND Urology
PROC: 07BC0ZX Excision of Pelvis Lymphatic, Open Approach, Diagnostic (ICD-10-PCS; principal; 2022-05-14 10:00)
PROC: 0TB70ZZ Excision of Left Ureter, Open Approach (ICD-10-PCS; principal; 2022-05-14 10:00)
PROC: 0TS70ZZ Reposition Left Ureter, Open Approach (ICD-10-PCS; principal; 2022-05-14 10:00)
DX: C66.2 Malignant neoplasm of left ureter (principal); E07.9 Disorder of thyroid, unspecified; J44.9 Chronic obstructive pulmonary disease, unspecified; E89.2 Postprocedural hypoparathyroidism; Z89.412 Acquired absence of left great toe; Z28.310 Unvaccinated for COVID-19; M15.9 Polyosteoarthritis, unspecified; R31.0 Gross hematuria; E78.5 Hyperlipidemia, unspecified; I10 Essential (primary) hypertension; F17.210 Nicotine dependence, cigarettes, uncomplicated; Z79.890 Hormone replacement therapy; Z79.899 Other long term (current) drug therapy; Z87.440 Personal history of urinary (tract) infections; Z91.040 Latex allergy status; Z88.5 Allergy status to narcotic agent
CPT/HCPCS: 86850; 86900; 86901; 88305; 88307; 88331; 93005; 94640; 94760

== ENCOUNTER → 2022-09-30 | Outpatient (CLI) | payer MEDICARE ==
--- NOTE | 2022-09-30 14:06 | CT ---
EXAMINATION TYPE: CT abdomen pelvis w con CT DLP: 370.40 mGycm, Automated exposure control for dose reduction was used. DATE OF EXAM: 09/30/2022 1:47 PM COMPARISON: Renal ultrasound 09/03/22. CLINICAL INDICATION:Female, 82 years old with history of C66.2 MALIGNANT NEOPLASM OF LEFT URETER; Hx LT ureter ca, cancer was removed and reattached. Hernia repair TECHNIQUE: Standard CT of the abdomen and pelvis following the administration of 80 cc of Isovue 30 0 IV contrast material and oral contrast. Coronal and sagittal reformats were performed. FINDINGS: LOWER CHEST: Moderate centrilobular emphysematous changes. Mitral annulus calcifications. ABDOMEN LIVER: Unremarkable GALLBLADDER AND BILE DUCTS: Unremarkable. PANCREAS: Unremarkable. SPLEEN: Unremarkable. ADRENAL GLANDS: Right adrenal gland is unremarkable. Nonspecific thickening of the left adrenal gland . KIDNEYS AND URETERS: No evidence of hydronephrosis or renal calculus. The kidneys enhance symmetrical ly without focal lesion. Prominent bilateral extrarenal pelvises. Contrast is demonstrated within bot h collecting systems on the delayed phase. PELVIS BLADDER: Unremarkable REPRODUCTIVE: Unremarkable. ABDOMEN & PELVIS STOMACH AND BOWEL: Stomach and duodenum are unremarkable. Distal colonic diverticulosis without evide nce for acute diverticulitis. Enteric contrast reaches the sigmoid colon. No evidence of bowel obstru ction. PERITONEUM: No evidence of pneumoperitoneum or free fluid. Postsurgical changes along the left pelvic sidewall from previous cancer resection and ureteral reimplant. There is a well-circumscribed cystic structure within the left anterior pelvis measuring 2.9 x 2.2 x 5.2 cm abutting the abdominal wall ( series 3, image 53). VASCULATURE: Mild atherosclerotic calcifications are present throughout the abdominal aorta and its b ranches. No evidence of aortic aneurysm. MUSCULOSKELETAL: No acute osseous abnormalities. Moderate disc degeneration changes are present throu ghout the thoracolumbar spine. No acute osseous abnormality. LYMPH NODES: No gross evidence for lymphadenopathy. SOFT TISSUE/ABDOMINAL WALL: Unremarkable IMPRESSION: 1. Postsurgical changes from left ureter cancer and hernia repair. No definitive evidence for local recurrence. 2. Left anterior pelvis well-circumscribed 5.2 cm fluid collection corresponding to prior ultrasound. This probably represents a peritoneal inclusion cyst/seroma in the setting of prior surgery. Follow up CT pelvis in 6 months is recommended to assess for stability. 3. Colonic diverticulosis without evidence for acute diverticulitis. 4. COPD changes.
== END | disposition home or self-care (01) ==
LOC: RADCTMAIN 11:20
PROVIDERS: ATTEND Urology
DX: C66.2 Malignant neoplasm of left ureter (principal); K57.30 Diverticulosis of large intestine without perforation or abscess without bleeding; J44.9 Chronic obstructive pulmonary disease, unspecified
CPT/HCPCS: 82565; 84520; 74177; 36415; Q9967